=== PATIENT | male | born 1940 ===

== ENCOUNTER 2021-03-09 07:10 | Day surgery (SDC) | payer OTHER ==
[~2021-03-09 07:10] MED LIST: COZAAR25 MG PO; LEVOTHYROXINE25 MCG PO
[2021-03-09] MEDS ORDERED: TYLENOL ARTHRI650 MG PO (10:02)
[2021-03-09] MEDS ORDERED: MIRALAX17 GM PO (10:02)
[2021-03-09] MEDS ORDERED: ULTRAM50 MG PO (10:02)
== END 2021-03-09 16:30 | disposition home or self-care (01) ==
LOC: CIR.AMB 07:10
PROVIDERS: ATTEND Surgery
DX: K40.90 Unilateral inguinal hernia, without obstruction or gangrene, not specified as recurrent (principal); Z20.822 Contact with and (suspected) exposure to COVID-19